=== PATIENT | male | born 1960 ===

== ENCOUNTER 2022-03-08 06:43 | Day surgery (SDC) | payer OTHER | END 2022-03-08 11:15 | disposition home or self-care (01) | LOC: AMB-ENDOS 06:43 | PROVIDERS: ATTEND Surgery | DX: D12.3 Benign neoplasm of transverse colon (principal); D12.5 Benign neoplasm of sigmoid colon; Z20.822 Contact with and (suspected) exposure to COVID-19; K57.30 Diverticulosis of large intestine without perforation or abscess without bleeding; E11.9 Type 2 diabetes mellitus without complications; I10 Essential (primary) hypertension ==